=== PATIENT | female | born 1995 | race Caucasian/White ===

== ENCOUNTER 2018-01-07 14:40 | Emergency (ER) | payer SELFPAY | END 2018-01-07 14:53 | disposition left against medical advice (07) | LOC: ED 14:47 | DX: Z53.21 Procedure and treatment not carried out due to patient leaving prior to being seen by health care provider (principal) ==

== ENCOUNTER 2018-03-04 05:41 | Emergency (ER) | payer SELFPAY ==
[~2018-03-04] VITALS: Ht 157.5 cm; Wt 69.1 kg
[2018-03-04 05:43] VITALS: BP 126/89
== END 2018-03-04 06:07 | disposition left against medical advice (07) ==
LOC: ED 06:00
DX: M25.511 Pain in right shoulder (principal)
CPT/HCPCS: 99281

== ENCOUNTER 2019-09-20 06:46 | Emergency (ER) | payer OTHER ==
[~2019-09-20] VITALS: Ht 157.5 cm; Wt 66.0 kg
[2019-09-20 06:58] VITALS: BP 115/76
--- NOTE | 2019-09-20 07:04 | NUR ---
[facility]IB [employer]. PER [employer] PT HAS DRUGS IN VAGINA BY SCAN AT CORRECTION. PT STATES"I DON'T HAVE ANY." NO MEDICAL COMPLAINTS. PT'S AOX4. RESPS EVEN AND UNLABORED. PT DENIES VB/VDC AT THIS TIME. BP/SPO2 MONITORS IN PLACE. CALL LIGHT WITHIN REACH.
--- NOTE | 2019-09-20 07:17 | NUR ---
PT AGREED TO DO PELVIC EXAM VERBALLY. PA ATTEMPTED PELVIC EXAM. PT STATES"I DON'T WANNA DO IT. IT'S BULLSHIT." PA STOPPED DOING EXAM.
--- NOTE | 2019-09-20 07:49 | NUR ---
Patient given discharge instructions and they have confirmed that they understand the instructions.
== END 2019-09-20 07:50 | disposition home or self-care (01) ==
LOC: ED 07:36
DX: R10.2 Pelvic and perineal pain (principal)
CPT/HCPCS: 99283